=== PATIENT | male | born 1965 | race Hispanic/Latino ===

== ENCOUNTER 2020-02-21 07:38 | Observation (INO) | payer OTHER ==
[~2020-02-21] VITALS: Ht 170.2 cm; Wt 82.6 kg
[2020-02-21 08:10] LABS: BASOPHILS % (AUTO) 0.8 % (0.0-5.0); HEMATOCRIT 45.3 % (42-54); LYMPHOCYTES % (AUTO) 41.2 % (21.0-51.0); MEAN CORPUSCULAR HEMOGLOBIN 27.9 pg (27.0-33.0); MEAN CORPUSCULAR HGB CONC 34.4 g/dL (32.0-36.0); MONOCYTES % (AUTO) 6.8 % (3.0-13.0); NEUTROPHILS % (AUTO) 47.9 % (40.0-77.0); PLATELET COUNT (AUTO) 230 K/uL (130-400); RED BLOOD CELL COUNT(AUTO) 5.59 MIL/uL (4.50-6.20); RED CELL DISTRIBUTION WIDTH 13.1 % (11.0-15.5); WHITE BLOOD COUNT (AUTO) 7.5 K/uL (4.8-10.8)
[2020-02-21] MEDS ORDERED: ASPIRIN 325 MG TABLET ONE (08:12)
[2020-02-21 08:32] LABS: CREATININE 1.3 mg/dL (0.5-1.5); POTASSIUM 3.9 mmol/L (3.5-5.1)
[2020-02-21 11:14] LABS: BASOPHILS % (AUTO) 0.9 % (0.0-5.0); EOSINOPHILS % (AUTO) 2.4 % (0.0-8.0); HEMATOCRIT 46.3 % (42-54); LYMPHOCYTES % (AUTO) 38.6 % (21.0-51.0); MEAN CORPUSCULAR HEMOGLOBIN 27.5 pg (27.0-33.0); MEAN CORPUSCULAR HGB CONC 33.7 g/dL (32.0-36.0); MEAN CORPUSCULAR VOLUME 81.7 fL (79-99); MONOCYTES % (AUTO) 6.3 % (3.0-13.0); NEUTROPHILS % (AUTO) 51.5 % (40.0-77.0); PLATELET COUNT (AUTO) 226 K/uL (130-400); RED BLOOD CELL COUNT(AUTO) 5.67 MIL/uL (4.50-6.20); RED CELL DISTRIBUTION WIDTH 13.2 % (11.0-15.5)
[2020-02-21 11:42] LABS: CREATINE KINASE, TOTAL 170 U/L (21-232); MYOGLOBIN 52 ng/mL (10-92); TROPONIN I < 0.04 ng/mL (0.00-0.06)
[2020-02-21 12:40] LABS: HEMOGLOBIN A1C 5.7 % (4.0-6.0)
[2020-02-21 12:48] LABS: THYROID STIMULATING HORMONE 0.74 uIU/mL (0.36-3.74)
[2020-02-21] MEDS ORDERED: NITROGLYCERIN 0.4 MG SL TAB SL PRN (13:00)
[2020-02-21 17:27] LABS: CREATINE KINASE, TOTAL 166 U/L (21-232); MYOGLOBIN 50 ng/mL (10-92); TROPONIN I < 0.04 ng/mL (0.00-0.06)
[2020-02-21 20:00] VITALS: BP 138/82
[2020-02-21] MEDS: ATORVASTATIN CALCIUM 20 MG TABLET PO SCH (20:34)
[2020-02-21] MEDS: METOPROLOL TARTRATE 25 MG TAB PO SCH (20:34)
--- NOTE | 2020-02-21 20:35 | NUR ---
MEDS SHIFT ASSESSMENT DONE, PLEASE REFER TO CHART. DUE MEDS ADMINISTERED, TOLERATED WELL. INSTRUCTED TO BE NPO POST [place] FOR LEXISCAN IN AM. PT VERBALIZES UNDERSTANDING. CALL LIGHT WITHIN REACH. WILL MONITOR PT. Addendum: 02/21/20 at 2133 by TATIANNA ZIEGLER RN RN Amended: Links added.
[2020-02-21 23:21] LABS: CREATINE KINASE, TOTAL 149 U/L (21-232); MYOGLOBIN 52 ng/mL (10-92); TROPONIN I < 0.04 ng/mL (0.00-0.06)
[2020-02-22] VITALS: BP 121/84
--- NOTE | 2020-02-22 02:00 | NUR ---
ROUNDS PT RESTING WELL, FAIRLY ASLEEP. NO DISTRESS NOTED. KEPT NPO FOR LEXISCAN TODAY. WILL CONTINUE TO MONITOR. CALL LIGHT WITHIN REACH.
[2020-02-22 04:00] VITALS: BP 115/75
--- NOTE | 2020-02-22 04:30 | NUR ---
SHOWER PT HAD HIS SHOWER, TOLERATED ACTIVITY WELL. SALINE LOCK FLUSHED PATENT. KEPT NPO FOR LEXISCAN. FOR MORE CARE.
[2020-02-22 04:56] LABS: BASOPHILS % (AUTO) 0.6 % (0.0-5.0); EOSINOPHILS % (AUTO) 3.4 % (0.0-8.0); HEMATOCRIT 48.5 % (42-54); LYMPHOCYTES % (AUTO) 41.4 % (21.0-51.0); MEAN CORPUSCULAR HEMOGLOBIN 27.9 pg (27.0-33.0); MEAN CORPUSCULAR VOLUME 82.1 fL (79-99); MONOCYTES % (AUTO) 6.8 % (3.0-13.0); NEUTROPHILS % (AUTO) 47.6 % (40.0-77.0); PLATELET COUNT (AUTO) 268 K/uL (130-400); RED BLOOD CELL COUNT(AUTO) 5.91 MIL/uL (4.50-6.20); RED CELL DISTRIBUTION WIDTH 13.2 % (11.0-15.5); WHITE BLOOD COUNT (AUTO) 8.5 K/uL (4.8-10.8)
[2020-02-22 05:22] LABS: ALBUMIN 3.8 g/dL (3.5-5.0); BILIRUBIN,TOTAL 0.7 mg/dL (0.2-1.0); CREATININE 1.3 mg/dL (0.5-1.5); POTASSIUM 4.1 mmol/L (3.5-5.1); TOTAL PROTEIN, SERUM 7.5 g/dL (6.0-8.3)
[2020-02-22 08:00] VITALS: BP 126/87
--- NOTE | 2020-02-22 10:30 | NUR ---
PER NUCLEAR MED STAFF. STATED LEXISCAN COULD NOT BE DONE UNTIL COVID PCR TEST WAS NEGATIVE. STATED PT COULD EAT, ALTHOUGH NO CAFFEINE OR DECAF PRODUCTS. CHARGE NURSE LANDON AND KVNG MADE AWARE. I ALSO INFORMED PT. WILL CONTINUE TO MONITOR PT.
[2020-02-22] MEDS: ASPIRIN 81MG TAB.CHEW PO SCH (11:19)
[2020-02-22] MEDS: METOPROLOL TARTRATE 25 MG TAB PO SCH ×2 (11:19→19:56)
[2020-02-22 12:01] VITALS: BP 128/84
[2020-02-22 16:00] VITALS: BP 122/72
[2020-02-22] MEDS ORDERED: ACETAMINOPHEN 325 MG TAB PO PRN (16:15)
[2020-02-22] MEDS ORDERED: ACETAMINOPHEN 325 MG TAB ONE (16:28)
[2020-02-22] MEDS: ATORVASTATIN CALCIUM 20 MG TABLET PO SCH (19:56)
[2020-02-22 20:08] VITALS: BP 117/74
[2020-02-23 00:12] VITALS: BP 107/71
[2020-02-23 04:12] VITALS: BP 118/62
[2020-02-23 05:01] LABS: HEMATOCRIT 53.4 % (42-54); MEAN CORPUSCULAR HEMOGLOBIN 27.8 pg (27.0-33.0); MEAN CORPUSCULAR HGB CONC 33.1 g/dL (32.0-36.0); PLATELET COUNT (AUTO) 296 K/uL (130-400); RED BLOOD CELL COUNT(AUTO) 6.36 MIL/uL (4.50-6.20); RED CELL DISTRIBUTION WIDTH 12.9 % (11.0-15.5); WHITE BLOOD COUNT (AUTO) 8.8 K/uL (4.8-10.8)
[2020-02-23 05:18] LABS: ALBUMIN 4.1 g/dL (3.5-5.0); BILIRUBIN,TOTAL 0.6 mg/dL (0.2-1.0); CREATININE 1.3 mg/dL (0.5-1.5); POTASSIUM 4.4 mmol/L (3.5-5.1); TOTAL PROTEIN, SERUM 8.4 g/dL (6.0-8.3)
[2020-02-23 05:47] LABS: BASOPHILS % (MANUAL) 3 % (0-2); EOSINOPHILS % (MANUAL) 3 % (1-6); LYMPHOCYTES % (MANUAL) 47 % (22-44); MONOCYTES % (MANUAL) 4 % (2-9); SEGMENTED NEUTROPHILS % 43 % (40-70)
[2020-02-23 05:48] LABS: MAN.DIFF COMMENT-IMPRESSION MANUAL DIFFERENTIAL
[2020-02-23 05:49] LABS: PLATELET MORPHOLOGY COMMENT ADEQUATE
[2020-02-23 08:00] VITALS: BP 129/80
[2020-02-23] MEDS ORDERED: REGADENOSON 0.4 MG/5 ML PF SYG IVP SCH ×2 (08:00→09:00)
[2020-02-23] MEDS: METOPROLOL TARTRATE 25 MG TAB PO SCH (09:00)
[2020-02-23] MEDS: ASPIRIN 81MG TAB.CHEW PO SCH (09:00)
[2020-02-23 12:00] VITALS: BP 123/86
[2020-02-23 16:00] VITALS: BP 119/85
--- NOTE | 2020-02-23 16:36 | NUR ---
SHELLY NOTE/BRIANA UNSUCCESSFUL ATTEMPTED TO PHONE PATIENT TO [phone] AT [phone] AND [phone], NO ANSWER. Addendum: 02/24/20 at 1024 by SABINA DIAMOND RN CM Amended: Links added.
[2020-02-23] MEDS ORDERED: LOSA50TA64 PO (17:45)
[2020-02-23] MEDS ORDERED: AEC81 PO (17:45)
== END 2020-02-23 20:08 | disposition home or self-care (01) ==
LOC: EDH 07:38 → EDHIP 10:48 → 3DH 18:20
PROVIDERS: ADMIT Hospitalist; ATTEND Hospitalist
DX: R07.89 Other chest pain (principal); Z20.828 Contact with and (suspected) exposure to other viral communicable diseases; F43.10 Post-traumatic stress disorder, unspecified; I10 Essential (primary) hypertension; Z87.891 Personal history of nicotine dependence
CPT/HCPCS: 36415 ×3; 71046; 78452; 80048; 80053 ×2; 80061; 82550 ×3; 83036; 83874 ×3; 84443; 84484 ×4; 85025 ×4; 87426; 93005 ×4; 93017; 99285; A9500 ×2; G0378 ×15; J2785; U0003; 96374

== ENCOUNTER 2021-07-10 18:48 | Emergency (ER) | payer OTHER ==
[~2021-07-10] VITALS: Ht 170.2 cm; Wt 81.6 kg
[~2021-07-10 18:48] MED LIST: AEC81 PO; LOSA50TA64 PO
[2021-07-10] MEDS ORDERED: IBUPROFEN 800 MG TAB PO ONE (19:30)
[2021-07-10] MEDS ORDERED: ACETAMINOPHEN 500 MG TABLET PO ONE (19:30)
[2021-07-10] MEDS ORDERED: IBUPROFEN 800 MG TAB ONE (21:25)
[2021-07-10] MEDS ORDERED: ACETAMINOPHEN WITH CODEINE 1 TAB TAB PO ONE (21:30)
[2021-07-10] MEDS ORDERED: IBUP-2070 PO (22:01)
[2021-07-10] MEDS ORDERED: ACET-66 PO (22:01)
[2021-07-10] MEDS ORDERED: BENZ-39 PO (22:01)
[2021-07-10 22:10] VITALS: BP 142/98
== END 2021-07-10 22:17 | disposition home or self-care (01) ==
LOC: EDH 18:48
DX: U07.1 COVID-19 (principal); I10 Essential (primary) hypertension; Z79.1 Long term (current) use of non-steroidal anti-inflammatories (NSAID); Z79.82 Long term (current) use of aspirin; Z79.899 Other long term (current) drug therapy; Z90.49 Acquired absence of other specified parts of digestive tract
CPT/HCPCS: 87635; 87804 ×2; 99283; C9803